=== PATIENT | male | born 1965 | race Caucasian/White ===

== ENCOUNTER 2019-03-28 16:54 | Emergency (ER) | payer MEDICARE, OTHER ==
[2019-03-28 17:09] VITALS: BP 146/83; PULSE 79; O2SAT 98
--- NOTE | 2019-03-28 17:15 | ERPHSYRPT ---
- History of Present Illness Time Seen by Provider: 03/28/19 17:13 Source: patient Exam Limitations: no limitations Patient Subjective Stated Complaint: "My left hand hurts, it got hit with a tree limb yesterday helping with tree trimming" Triage Nursing Assessment: aaox3, walked in, swelling to posterior aspect of left hand noted, c/o pain in left hand. states was mulching tree limbs and tree limb hit his hand yesterday. Physician History: 53 years old male came to ER c/o "My left hand hurts, it got hit with a tree limb yesterday helping with tree trimming" Occurred: yesterday Method of Injury: direct blow Quality: constant Severity of Pain-Max: mild Severity of Pain-Current: mild Extremities Pain Location: hand: left Modifying Factors: Improves With: nothing Associated Symptoms: none Allergies/Adverse Reactions: No Known Drug Allergies Allergy (Unverified 05/08/15 21:19) Hx Tetanus, Diphtheria Vaccination/Date Given: Yes Hx Influenza Vaccination/Date Given: Yes Hx Pneumococcal Vaccination/Date Given: No - Review of Systems Constitutional: No Symptoms Eyes: No Symptoms Ears, Nose, & Throat: No Symptoms Respiratory: No Symptoms Cardiac: No Symptoms Abdominal/Gastrointestinal: No Symptoms Musculoskeletal: Joint Pain, Joint Swelling - Past Medical History Pertinent Past Medical History: Yes Neurological History: No Pertinent History ENT History: No Pertinent History Cardiac History: No Pertinent History Respiratory History: No Pertinent History Endocrine Medical History: No Pertinent History Musculoskeletal History: Other GI Medical History: No Pertinent History Psycho-Social History: Depression Other Medical History: Back Pain - Past Surgical History Past Surgical History: Yes Genitourinary: No Pertinent History Musculoskeletal: Orthopedic Surgery Other Surgical History: herniated disc surgery - Social History Smoking Status: Current every day smoker How long have you smoked: 15 yrs Exposure to second hand smoke: Yes Drug Use: marijuana Patient Lives Alone: No - Nursing Vital Signs Nursing Vital Signs: Initial Vital Signs Temperature 98.3 F 03/28/19 17:00 Pulse Rate 79 03/28/19 17:00 Respiratory Rate 20 03/28/19 17:00 Blood Pressure 146/83 03/28/19 17:00 O2 Sat by Pulse Oximetry 98 03/28/19 17:00 Pain Scale Pain Intensity 7 - Physical Exam General Appearance: no apparent distress Eyes, Ears, Nose, Throat Exam: normal ENT inspection Neck Exam: normal inspection Back Exam: normal inspection Hand Exam: deformity, soft tissue tenderness SpO2: 98 Procedures - Splinting Location of Splint: Left Type of Splint: Other (teardrop splint) Splint Applied By: ED Nurse Pre-Proc Neuro Vasc Exam: normal Post-Proc Neuro Vasc Exam: neurovascular intact, good alignment - Course Nursing assessment & vital signs reviewed: Yes - Radiology Exams Hand X-ray Interpretation: Reviewed by me, Non-displaced Fracture (3rd metacarpal head left hand) Ordered Tests: Active Orders 24 hr Category Date Time Status HAND (MINIMUM 3 VIEWS) Stat Exams 03/28/19 17:13 Ordered - Progress Progress: improved, pain not gone completely Counseled pt/family regarding: need for follow-up, rad results - Departure Departure Disposition: Home Clinical Impression: Boxer's metacarpal fracture, neck, closed Qualifiers: Encounter type: initial encounter Qualified Code(s): S62.339A - Displaced fracture of neck of unspecified metacarpal bone, initial encounter for closed fracture Condition: Stable Critical Care Time: No Referrals: BHASKAR DUONG [Primary Care Provider] - Instructions: Boxer's Fracture (DC) Additional Instructions: Discharge/Care Plan DAVON CHARLES was seen on 03/28/19 in the Emergency Room. The patient was counseled regarding Diagnosis,Lab results, Imaging studies, need for follow up and when to return to the Emergency Room. Prescriptions given: Discharge Note I have spoken with the patient and/or caregivers. I have explained the patient' s condition, diagnosis and treatment plan based on the information available to me at this time. I have answered the patient's and/or caregiver's questions and addressed any concerns. The patient and/or caregivers have as good understanding of the patient's diagnosis, condition and treatment plan as can be expected at this point. The vital signs have been stable. The patient's condition is stable and appropriate for discharge from the emergency department. The patient will pursue further outpatient evaluation with the primary care physician or other designated or consulting physician as outlined in the discharge instructions. The patient and/or caregivers are agreeable to this plan of care and follow-up instructions have been explained in detail. The patient and/or caregivers have received these instruction. The patient/and or caregivers are aware that any significant change in condition or worsening of symptoms should prompt an immediate return to this or the closest emergency department or call 911. DAVON CHARLES was seen on 03/28/19 n the Emergency Room. At that time you were treated for an emergent condition, during your visit Laboratory, Radiology and/or other procedures may have been ordered. It is very important that you follow-up with your Primary Care Physician BHASKAR DUONG within the next 24-48 hours to review your Emergency Room visit and the final results of testing that was ordered. Some test results such as Urine Cultures, Blood Cultures, and other cultures if ordered will not be finalized for 24-48 hours. If you do not have a Primary Care Provider please call the medical records department at [phone] to obtain a copy of your results or you may sign into our patient portal to obtain these results by visiting us @ [email or web address] and completing the following steps: 1. Click on the Patient Portal link 2. Click the Patient Self Enrollment Link to complete the enrollment form and entering your 3. Once the enrollment form is completed you will receive an email with a temporary ID and password at the email address you provided. 4. Next choose a user name and password. Your user name must be at least 4 characters long and your password must be at least 4 characters long. 5. Choose a security question from the list and provide your answer to the question. If you already have signed into the Health Portal you may access your Health Care Information 21/01 by the following steps: 1. Login to our website @ [email or web address] 2. Enter your original user name and password. FAQS The [facility] Health Portal is an online tool that contains your Lab Results, Radiology Reports, Visit History, Discharge Instructions and Health Summary Lab and Radiology Results will not be available for 72 hours on the portal. The Portal is a secure site, passwords are encryted and URLs are re-written so they cannot be copied and pasted. You and authorized family members are the only ones who can access your Portal. Also there is a timeout feature that protects your information if you leave the Portal page open. If you have technical difficulty please use the Contact Us link on the page this will allow you to submit any questions you have regarding the Portal or you may contact the Medical Record Department at [phone] ext [phone]. Prescriptions: Naproxen 375 mg [Naprosyn 375 mg] 375 mg PO Q8H #30 tablet
--- NOTE | 2019-03-28 20:03 | XRAY ---
Indication: Pain following injury. Comparison: None 3 views of the left hand demonstrates possible nondisplaced 3rd metacarpal head hairline fracture on oblique view. Minimal 3rd/4th metacarpal head and distal radioulnar bony spurring. No other bony, articular, or soft tissue abnormalities.
== END 2019-03-28 18:29 | disposition home or self-care (01) ==
LOC: ED 16:54
DX: S62.339A Displaced fracture of neck of unspecified metacarpal bone, initial encounter for closed fracture (principal); W22.8XXA Striking against or struck by other objects, initial encounter
CPT/HCPCS: 29126; 73130; 99283